=== PATIENT | male | born 1950 | race Caucasian/White ===

== ENCOUNTER → 2018-04-22 | Outpatient (CLI) | payer OTHER, BC | LOC: BHFA 10:00 | PROVIDERS: ATTEND Internal Medicine Cardiovascular Disease | DX: I77.810 Thoracic aortic ectasia (principal) ==

== ENCOUNTER 2018-05-12 15:19 | Observation (INO) | payer OTHER, BC ==
--- NOTE | 2018-05-12 16:12 | EDPHY ---
H & P Stated Complaint: nausea, weakness, fever, abdominal pain Time Seen by Provider: 05/12/18 15:51 HPI/ROS: Chief complaint: Fever History of present illness: This is a 67-year-old male who presents to the emergency department for evaluation of fever. He reports the onset of subjective fevers last night. He reports associated the dyspnea, nausea and vomiting as well as diarrhea. In addition, he reports generalized fatigue. He denies precipitating factors. He denies alleviating factors. He does report approximately a week and a half ago he was sick with cold symptoms, his doctor treated him with amoxicillin. He finished 7 of 10 days worth of the course and felt like he has recovered. He denies associated signs or symptoms including no chest pain, no blood in the stools, no urinary symptoms. Review of systems: A 10 point review of systems was obtained and other than described above was negative - Personal History Current Tetanus/Diphtheria Vaccine: Yes Current Tetanus Diphtheria and Acellular Pertussis (TDAP): Yes - Medical/Surgical History Hx Asthma: No Hx Chronic Respiratory Disease: No Hx Diabetes: No Hx Cardiac Disease: No Hx Renal Disease: No Hx Cirrhosis: No Hx Alcoholism: No Hx HIV/AIDS: No Hx Splenectomy or Spleen Trauma: No - Social History Smoking Status: Never smoked - Physical Exam Exam: General Appearance: Alert, nontoxic. Eyes: Pupils equal and round no pallor or injection. ENT, Mouth: Mucous membranes moist. Respiratory: There are no retractions, lungs are clear to auscultation. Cardiovascular: Regular rate and rhythm. Gastrointestinal: Abdomen is soft and non tender, no masses, bowel sounds normal. Neurological: Alert. Strength and sensation intact. No meningismus. Skin: Warm and dry, no rashes. Musculoskeletal: Neck is supple non tender. Extremities are symmetrical, full range of motion. Psychiatric: Patient is oriented X 3, there is no agitation. Constitutional: Initial Vital Signs Temperature (C) 37.4 C 05/12/18 15:34 Heart Rate 114 H 05/12/18 15:34 Respiratory Rate 16 05/12/18 15:34 Blood Pressure 182/152 H 05/12/18 15:34 O2 Sat (%) 99 05/12/18 15:34 O2 Delivery Mode Room Air Allergies/Adverse Reactions: No Known Allergies Allergy (Unverified 05/12/18 15:42) Home Medications: Medication Instructions Recorded Acetaminophen [Tylenol ES 500 mg 500 mg PO Q6 PRN 05/12/18 (*)] Allopurinol [Allopurinol 300 MG 300 mg PO DAILY 05/12/18 (RX)] Cholecalciferol (Vitamin D3) 50,000 unit PO MO 05/12/18 [Vitamin D] Famciclovir 500 mg PO DAILY 05/12/18 Folic Acid [Folic Acid 1 MG (*)] 1 mg PO DAILY 05/12/18 Labetalol HCl [Trandate 100 mg (*)] 100 mg PO DAILY 05/12/18 Losartan Potassium [Cozaar 25 mg 25 mg PO DAILY 05/12/18 (*)] Mometasone Furoate [Elocon Cream 1 almaz TP HS 05/12/18 (*)] Omeprazole 20 mg PO BID 05/12/18 Rosuvastatin Calcium [Crestor 10mg 5 mg PO DAILY 05/12/18 (RX)] metroNIDAZOLE 0.75% [Metrocream 1 amlaz TP HS 05/12/18 0.75% (RX)] Medical Decision Making - Diagnostics Imaging Results: Imaging Impressions Chest X-Ray 05/12/18 16:07 Impression: Tortuous thoracic aorta. No acute cardiopulmonary abnormality identified. Imaging: I viewed and interpreted images myself ED Course/Re-evaluation: Patient is seen in conjunction with my secondary supervising physician Dr. Luz Guy. Patient presents to the emergency department with fever, nausea, vomiting and diarrhea. He is generally unwell appearing. He triggered sepsis screening, although he did not qualify for severe sepsis as he was borderline the all rhythm was followed. No specific infectious pathology was noted therefore antibiotics were withheld. Given he is unwell appearing he is admitted to the hospitalist service for further evaluation and care. The plan has been discussed with the patient and family who voiced understanding and agreement with plan. Differential Diagnosis: Included but not limited to URI, bronchitis, pneumonia, influenza, GI bug, sepsis, - Data Points Laboratory Results: Laboratory Results 05/12/18 16:20 05/12/18 16:20 05/12/18 05/12/18 05/12/18 16:20 16:20 16:20 WBC RBC Hgb Hct MCV MCH MCHC RDW Plt Count MPV Neut % (Auto) Lymph % (Auto) [place] % (Auto) Eos % (Auto) Baso % (Auto) Nucleat RBC Rel Count Absolute Neuts (auto) Absolute Lymphs (auto) Absolute Monos (auto) Absolute Eos (auto) Absolute Basos (auto) Absolute Nucleated RBC Immature Gran % Immature Gran # RBC/WBC/PLT Morphology Platelet Estimate PT 13.3 SEC SEC (12.0-15.0) INR 1.05 (0.83-1.16) APTT 26.3 SEC SEC (23.0-38.0) VBG Lactic Acid 2.5 mmol/L H mmol/L (0.7-2.1) Sodium Potassium Chloride Carbon Dioxide Anion Gap BUN Creatinine Estimated GFR Glucose Calcium Total Bilirubin Conjugated Bilirubin Unconjugated Bilirubin AST ALT Alkaline Phosphatase Total Protein Albumin Lipase Nasal Influenza A PCR NEGATIVE FOR FLU A (NEGATIVE) Nasal Influenza B PCR NEGATIVE FOR FLU B (NEGATIVE) 05/12/18 05/12/18 16:20 16:20 WBC 10.83 10^3/uL H 10^3/uL (3.80-9.50) RBC 5.43 10^6/uL 10^6/uL (4.40-6.38) Hgb 15.9 g/dL g/dL (13.7-17.5) Hct 46.8 % % (40.0-51.0) MCV 86.2 fL fL (81.5-99.8) MCH 29.3 pg pg (27.9-34.1) MCHC 34.0 g/dL g/dL (32.4-36.7) RDW 13.3 % % (11.5-15.2) Plt Count 180 10^3/uL 10^3/uL (150-400) MPV 11.5 fL fL (8.7-11.7) Neut % (Auto) 91.3 % H % (39.3-74.2) Lymph % (Auto) 3.5 % L % (15.0-45.0) [place] % (Auto) 4.7 % % (4.5-13.0) Eos % (Auto) 0.0 % L % (0.6-7.6) Baso % (Auto) 0.1 % L % (0.3-1.7) Nucleat RBC Rel Count 0.0 % % (0.0-0.2) Absolute Neuts (auto) 9.89 10^3/uL H 10^3/uL (1.70-6.50) Absolute Lymphs (auto) 0.38 10^3/uL L 10^3/uL (1.00-3.00) Absolute Monos (auto) 0.51 10^3/uL 10^3/uL (0.30-0.80) Absolute Eos (auto) 0.00 10^3/uL L 10^3/uL (0.03-0.40) Absolute Basos (auto) 0.01 10^3/uL L 10^3/uL (0.02-0.10) Absolute Nucleated RBC 0.00 10^3/uL 10^3/uL (0-0.01) Immature Gran % 0.4 % % (0.0-1.1) Immature Gran # 0.04 10^3/uL 10^3/uL (0.00-0.10) RBC/WBC/PLT Morphology TNP Platelet Estimate TNP PT INR APTT VBG Lactic Acid Sodium 136 mEq/L mEq/L (135-145) Potassium 3.7 mEq/L mEq/L (3.5-5.2) Chloride 105 mEq/L mEq/L (97-110) Carbon Dioxide 20 mEq/l L mEq/l (22-31) Anion Gap 11 mEq/L mEq/L (6-14) BUN 30 mg/dL H mg/dL (7-23) Creatinine 1.2 mg/dL mg/dL (0.7-1.3) Estimated GFR 60 Glucose 96 mg/dL mg/dL (70-100) Calcium 9.4 mg/dL mg/dL (8.5-10.4) Total Bilirubin 1.6 mg/dL H mg/dL (0.1-1.4) Conjugated Bilirubin 0.4 mg/dL mg/dL (0.0-0.5) Unconjugated Bilirubin 1.2 mg/dL H mg/dL (0.0-1.1) AST 29 IU/L IU/L (17-59) ALT 26 IU/L IU/L (21-72) Alkaline Phosphatase 59 IU/L IU/L (38-126) Total Protein 6.5 g/dL g/dL (6.3-8.2) Albumin 4.2 g/dL g/dL (3.5-5.0) Lipase 90 IU/L IU/L (23-300) Nasal Influenza A PCR Nasal Influenza B PCR Microbiology Results: MICROBIOLOGY 05/12/18 16:29 Nasal, Sinus - Swab Respiratory Panel (PCR) - Final No Organism Detected By Pcr Medications Given: Sodium Chloride (Ns) 1,000 mls @ 100 mls/hr IV CONT CARLOS Stop: 05/13/18 04:44 Last Admin: 05/12/18 19:33 Dose: 1,000 mls Miscellaneous Medication (Metronidazole 0.75% [Metrocream 0.75%]) 1 almaz TP HS CARLOS Stop: 11/08/18 20:59 Last Admin: 05/12/18 19:59 Dose: Not Given Miscellaneous Medication (Mometasone Furoate [Elocon Cream (*)]) 1 almaz TP HS CARLOS Stop: 11/08/18 20:59 Last Admin: 05/12/18 19:59 Dose: Not Given Discontinued Medications Sodium Chloride (Ns) 1,000 mls @ 0 mls/hr IV ONCE ONE; Wide Open PRN Reason: Protocol Stop: 05/12/18 16:08 Last Admin: 05/12/18 16:45 Dose: Not Given Sodium Chloride (Ns) 2,500 mls @ 5,000 mls/hr 30 ml/kg infuse over 30 min ( 2500 ml) IV EDNOW ONE PRN Reason: Protocol Stop: 05/12/18 17:04 Last Admin: 05/12/18 16:55 Dose: 2,500 mls Ondansetron HCl (Zofran) 4 mg IVP EDNOW ONE Stop: 05/12/18 16:29 Last Admin: 05/12/18 16:29 Dose: 4 mg Departure - Departure Disposition: [facility] Acute Clinical Impression: Vomiting and diarrhea Fever Qualifiers: Fever type: unspecified Qualified Code(s): R50.9 - Fever, unspecified Condition: Fair
[2018-05-12] MEDS: NS 1,000 ML IV ONE ×2 (16:15→16:45)
[2018-05-12] MEDS ORDERED: ONDANSETRON 4 MG/2 ML VIAL ONE (16:28)
[2018-05-12] MEDS ORDERED: ONDANSETRON 4 MG/2 ML VIAL IVP ONE (16:28)
[2018-05-12 16:35] LABS: PLATELET COUNT 180 10^3/uL (150-400)
[2018-05-12] MEDS ORDERED: NS 2,500 ML IV ONE (16:35)
[2018-05-12 16:50] LABS: INR 1.05 (0.83-1.16); PROTIME(PATIENT) 13.3 SEC (12.0-15.0)
[2018-05-12] MEDS ORDERED: ONDANSETRON DISINTEGRATING 4 MG TAB PO PRN (18:40)
[2018-05-12] MEDS ORDERED: ACETAMINOPHEN 325 MG TAB PO PRN (18:40)
[2018-05-12] MEDS ORDERED: ONDANSETRON 4 MG/2 ML VIAL IVP PRN (18:40)
[2018-05-12] MEDS ORDERED: NS 1,000 ML IV SCH (18:45)
[2018-05-12] MEDS ORDERED: PROMETHAZINE HCL 25 MG/ML INJ IVP PRN (18:49)
--- NOTE | 2018-05-12 18:56 | PDGENHP ---
History and Physical - Chief Complaint Nausea, vomiting, diarrhea - History of Present Illness HPI: 67 y/o male w/ hx of hypertension, hyperlipidemia and dilated aortic root presents to ED w/ acute nausea, vomiting, diarrhea, body aches, and fatigue. Per pt and (who was at bedside), he had a bad cold w/ productive cough and was given Amoxicillin by his PCP which was last week. Cold symptoms have resolved. Yesterday night, he ate chicken parmesan at his 's mom's assisted -living facility and is not sure if the chicken was cooked completely. He went to bed early. He woke up today and felt like his stomach was "upside down" and had 3 bouts of non-bloody vomiting and one bout of non-bloody diarrhea. He feels like he is breathing differently by "trying to catch my breath" because of the nausea and general malaise, saturating 99% RA. checked his temp at home and was 100.8F. He denies chest pain, palpitations, constipation, dysuria , chills. He is negative for influenza and CXR w/o any acute cardiopulmonary present. He is being admitted for further testing and monitoring. History Information - Allergies/Home Medication List Allergies/Adverse Reactions: No Known Allergies Allergy (Unverified 05/12/18 15:42) Home Medications: Acetaminophen [Tylenol ES 500 mg (*)] 500 mg PO Q6 PRN 05/12/18 [Last Taken Unknown] Allopurinol [Allopurinol 300 MG (RX)] 300 mg PO DAILY 05/12/18 [Last Taken 05/11] Cholecalciferol (Vitamin D3) [Vitamin D] 50,000 unit PO MO 05/12/18 [Last Taken 05/09/18] Famciclovir 500 mg PO DAILY 05/12/18 [Last Taken Unknown] Folic Acid [Folic Acid 1 MG (*)] 1 mg PO DAILY 05/12/18 [Last Taken Unknown] Labetalol HCl [Trandate 100 mg (*)] 100 mg PO DAILY 05/12/18 [Last Taken ] Losartan Potassium [Cozaar 25 mg (*)] 25 mg PO DAILY 05/12/18 [Last Taken ] Mometasone Furoate [Elocon Cream (*)] 1 almaz TP HS 05/12/18 [Last Taken 05/11/18] Omeprazole 20 mg PO BID 05/12/18 [Last Taken 05/11/18] Rosuvastatin Calcium [Crestor 10mg (RX)] 5 mg PO DAILY 05/12/18 [Last Taken 08/24] metroNIDAZOLE 0.75% [Metrocream 0.75% (RX)] 1 almaz TP HS 05/12/18 [Last Taken 08/24] I have personally reviewed and updated: family history, medical history, social history, surgical history - Past Medical History hypertension, hyperlipidemia - Surgical History Additional surgical history: Prostatectomy in 2010 - Family History Positive for: non-pertinent - Social History Smoking Status: Never smoked Alcohol Use: Rarely Drug Use: None Additional social history: , renovating portions of their house. Because they are re-doing their [place], the sawdust is affecting his respiratory system. They have been staying at a hotel for the last 3 days. Review of Systems Review of Systems: ROS: 10pt was reviewed & negative except for what was stated in HPI & below Physical Exam Physical Exam: Lab data and imaging were reviewed. Case discussed with admitting physician, Dr. Fran Farris. WBC: 10.83 Lactic acid: 2.5 --> received bolus of NS ---> rechecked 1.9 BUN/Cr: 30/1.2 CXR: No acute cardiopulmonary abnormalities. Tortuous thoracic aorta. Temp Pulse Resp BP Pulse Ox 37.4 C 95 18 115/72 99 05/12/18 15:34 05/12/18 18:05 05/12/18 18:05 05/12/18 18:05 05/12/18 18:05 Constitutional: appears nourished, uncomfortable, other (Calm, cooperative male pt. Appears fatigued and skin is flushed.) Eyes: PERRL, anicteric sclera, EOMI Ears, Nose, Mouth, Throat: hearing normal, ears appear normal, no oral mucosal ulcers, dry mucous membranes Cardiovascular: regular rate and rhythym, no murmur, rub, or gallop, tachycardia Peripheral Pulses: 2+: dorsalis-pedis (R) (Radial 2+), dorsalis-pedis (L) ( Radial 2+) Respiratory: no respiratory distress, no rales or rhonchi, clear to auscultation Gastrointestinal: normoactive bowel sounds, no palpable masses, tenderness (LUQ/ LLQ - reports having diverticulitis in the past, denies these are similar symptoms) Genitourinary: no bladder fullness, no bladder tenderness Skin: warm, normal color, no rashes or abrasions, no fluctuance, no induration, other (Flushed skin tone), No mottled Musculoskeletal: full muscle strength, no muscle tenderness, normal joint ROM, no joint effusions Neurologic: AAOx3, sensation intact bilaterally, CN II-XII Intact Psychiatric: interacting appropriately, not anxious, not encephalopathic, thought process linear Lymph, Heme, Immunologic: no cervical LAD, no supraclavicular LAD Lab Data & Imaging Review 05/12/18 16:20 05/12/18 16:20 WBC 10.83 10^3/uL (3.80-9.50) H 05/12/18 16:20 RBC 5.43 10^6/uL (4.40-6.38) 05/12/18 16:20 Hgb 15.9 g/dL (13.7-17.5) 05/12/18 16:20 Hct 46.8 % (40.0-51.0) 05/12/18 16:20 MCV 86.2 fL (81.5-99.8) 05/12/18 16:20 MCH 29.3 pg (27.9-34.1) 05/12/18 16:20 MCHC 34.0 g/dL (32.4-36.7) 05/12/18 16:20 RDW 13.3 % (11.5-15.2) 05/12/18 16:20 Plt Count 180 10^3/uL (150-400) 05/12/18 16:20 MPV 11.5 fL (8.7-11.7) 05/12/18 16:20 Neut % (Auto) 91.3 % (39.3-74.2) H 05/12/18 16:20 Lymph % (Auto) 3.5 % (15.0-45.0) L 05/12/18 16:20 [place] % (Auto) 4.7 % (4.5-13.0) 05/12/18 16:20 Eos % (Auto) 0.0 % (0.6-7.6) L 05/12/18 16:20 Baso % (Auto) 0.1 % (0.3-1.7) L 05/12/18 16:20 Nucleat RBC Rel Count 0.0 % (0.0-0.2) 05/12/18 16:20 Absolute Neuts (auto) 9.89 10^3/uL (1.70-6.50) H 05/12/18 16:20 Absolute Lymphs (auto) 0.38 10^3/uL (1.00-3.00) L 05/12/18 16:20 Absolute Monos (auto) 0.51 10^3/uL (0.30-0.80) 05/12/18 16:20 Absolute Eos (auto) 0.00 10^3/uL (0.03-0.40) L 05/12/18 16:20 Absolute Basos (auto) 0.01 10^3/uL (0.02-0.10) L 05/12/18 16:20 Absolute Nucleated RBC 0.00 10^3/uL (0-0.01) 05/12/18 16:20 Immature Gran % 0.4 % (0.0-1.1) 05/12/18 16:20 Immature Gran # 0.04 10^3/uL (0.00-0.10) 05/12/18 16:20 RBC/WBC/PLT Morphology TNP 05/12/18 16:20 Platelet Estimate TNP 05/12/18 16:20 PT 13.3 SEC (12.0-15.0) 05/12/18 16:20 INR 1.05 (0.83-1.16) 05/12/18 16:20 APTT 26.3 SEC (23.0-38.0) 05/12/18 16:20 VBG Lactic Acid 1.9 mmol/L (0.7-2.1) 05/12/18 18:10 Sodium 136 mEq/L (135-145) 05/12/18 16:20 Potassium 3.7 mEq/L (3.5-5.2) 05/12/18 16:20 Chloride 105 mEq/L (97-110) 05/12/18 16:20 Carbon Dioxide 20 mEq/l (22-31) L 05/12/18 16:20 Anion Gap 11 mEq/L (6-14) 05/12/18 16:20 BUN 30 mg/dL (7-23) H 05/12/18 16:20 Creatinine 1.2 mg/dL (0.7-1.3) 05/12/18 16:20 Estimated GFR 60 05/12/18 16:20 Glucose 96 mg/dL (70-100) 05/12/18 16:20 Calcium 9.4 mg/dL (8.5-10.4) 05/12/18 16:20 Total Bilirubin 1.6 mg/dL (0.1-1.4) H 05/12/18 16:20 Conjugated Bilirubin 0.4 mg/dL (0.0-0.5) 05/12/18 16:20 Unconjugated Bilirubin 1.2 mg/dL (0.0-1.1) H 05/12/18 16:20 AST 29 IU/L (17-59) 05/12/18 16:20 ALT 26 IU/L (21-72) 05/12/18 16:20 Alkaline Phosphatase 59 IU/L (38-126) 05/12/18 16:20 Total Protein 6.5 g/dL (6.3-8.2) 05/12/18 16:20 Albumin 4.2 g/dL (3.5-5.0) 05/12/18 16:20 Lipase 90 IU/L (23-300) 05/12/18 16:20 Nasal Influenza A PCR NEGATIVE FOR FLU A (NEGATIVE) 05/12/18 16:20 Nasal Influenza B PCR NEGATIVE FOR FLU B (NEGATIVE) 05/12/18 16:20 Assessment & Plan Plan: 67 y/o male w/ hx of HTN, HLD, and dilated aortic root presents with acute onset of N/V, diarrhea, and general malaise. He was recently treated with Amoxicillin from his PCP for URI which per pt, has resolved one week prior. 1. SIRS 2/2 suspected infection from unknown origin: Received 2.5L NS in ED, lactic acid of 2.5 was rechecked and was 1.9 after receiving fluids. Afebrile now (37.4c), however tachycardic and upon presentation to ED was dyspneic at 20. Leukocytosis (10.83). Possible food poisoning from yesterday's meal. -Negative respiratory PCR -GI pathogen panel PCR needs to be collected -UA and blood cultures pending -CBC in AM to check white count -Cont IVF x 1 bag -Treat symptoms conservatively w/ anti-emetics and fluids 2. Renal impairment: BUN/Cr: 30/1.2. 2017 BUN/Cr 22/1.1. Mild renal impairment d/t acute fluid loss, poor PO intake. -Received IVF in ED; will receive one IVF bag -BMP in AM to review renal function -Avoid nephrotoxic agents 3. Hypertension/dilated aortic root: He recently saw corporate analyst Dr. Segovia as a f/u to his echo in late 2018. Echo was unremarkable with EF 69%, RVSP 32 mmHg, dilated ascending aorta measuring 4.1cm which compared to an echo in 2014 is unchanged. On labetalol. Holding losartan d/t #2 above. 4. Hyperlipidemia: on rosuvastatin. 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 Diet: Regular VTE ppx: SCDs Code: Full Dispo: Admit to obs
--- NOTE | 2018-05-12 19:43 | HOSPPROG ---
Hospitalist Progress Note Assessment/Plan: I have personally seen and evaluated Mr. Leos. I agree with the assessment and plan as outlined by BENCH MECHANIC, Ivy Sr, in a separate note. Objective: Vital Signs Temp Pulse Resp BP Pulse Ox 37.4 C 95 18 115/72 99 05/12/18 15:34 05/12/18 18:05 05/12/18 18:05 05/12/18 18:05 05/12/18 18:05 05/11/18 05/12/18 05/13/18 05:59 05:59 05:59 Intake Total 2500 Output Total 0 Balance 2500 PT 13.3 SEC (12.0-15.0) 05/12/18 16:20 INR 1.05 (0.83-1.16) 05/12/18 16:20 - Physical Exam Constitutional: no apparent distress Eyes: PERRL Ears, Nose, Mouth, Throat: moist mucous membranes Cardiovascular: regular rate and rhythym Respiratory: no respiratory distress Skin: warm Neurologic: AAOx3 Psychiatric: interacting appropriately ICD10 Worksheet Patient Problems: Problems Problem Status Onset Fever Acute Vomiting and diarrhea Acute
[2018-05-12] MEDS ORDERED: MOMETASONE FUROATE TP SCH (21:00)
[2018-05-12] MEDS ORDERED: METRONIDAZOLE 0.75% TP SCH (21:00)
[2018-05-13 05:55] LABS: PLATELET COUNT 134 10^3/uL (150-400)
[2018-05-13] MEDS ORDERED: ROSUVASTATIN CALCIUM 10 MG TAB PO SCH (09:00)
[2018-05-13] MEDS ORDERED: LABETALOL HCL 100 MG TAB PO SCH (09:00)
[2018-05-13] MEDS ORDERED: FAMCICLOVIR 250 MG TAB PO SCH (09:00)
[2018-05-13] MEDS ORDERED: LOSARTAN POTASSIUM 25 MG TAB PO SCH (09:00)
[2018-05-13] MEDS ORDERED: ALLOPURINOL 300 MG TAB PO SCH (09:00)
[2018-05-13] MEDS ORDERED: FOLIC ACID 1 MG TAB PO SCH (09:00)
[2018-05-13] MEDS ORDERED: PANTOPRAZOLE SODIUM 40 MG TAB PO SCH (09:00)
[2018-05-13 11:04] VITALS: BP 110/60
--- NOTE | 2018-05-13 12:17 | HOSPPROG ---
Hospitalist Progress Note Assessment/Plan: . 67 y/o male w/ hx of HTN, HLD, and dilated aortic root presents with acute onset of N/V, diarrhea, and general malaise. He was recently treated with Amoxicillin from his PCP for URI which per pt, has resolved one week prior. *acute viral gastroenteritis -GI PCR shows Eaec -supportive care -no further diarrhea, tolerating regular diet *SIRS due to the above -blood cx pending *recent URI -PCR is negative *renal insufficienc-stable *HTN (Chest xray shows a tortuous thoracic aorta) -He recently saw bull gang supervisor Dr. Segovia as a f/u to his echo in late 2018 -dilated ascending aorta measuring 4.1cm *Hyperlipidemia - on rosuvastatin. * Ocular herpes -on Famvir *plan: dc home Subjective: Braulio said he is feeling overall better. Objective: Vital Signs Temp Pulse Resp BP Pulse Ox 36.8 C 71 16 110/60 94 05/13/18 11:03 05/13/18 11:03 05/13/18 11:03 05/13/18 11:03 05/13/18 11:03 Microbiology 05/12/18 21:05 Gastrointestinal Tract Panel (PCR) - Final Stool E.coli Enteroaggregative(Eaec) Laboratory Results 05/13/18 04:55 05/13/18 04:55 05/12/18 05/13/18 05/14/18 05:59 05:59 05:59 Intake Total 2500 Output Total 0 Balance 2500 PT 13.3 SEC (12.0-15.0) 05/12/18 16:20 INR 1.05 (0.83-1.16) 05/12/18 16:20 - Physical Exam Constitutional: no apparent distress, appears nourished, not in pain Eyes: PERRL Ears, Nose, Mouth, Throat: hearing normal Cardiovascular: regular rate and rhythym Respiratory: no respiratory distress Gastrointestinal: normoactive bowel sounds, soft, non-tender abdomen Skin: warm Neurologic: AAOx3 Psychiatric: interacting appropriately ICD10 Worksheet Patient Problems: Problems Problem Status Onset Fever Acute Vomiting and diarrhea Acute
--- NOTE | 2018-05-13 15:18 | ASDISCHSUM ---
Discharge Information Plan Status:Home with No Needs Medically Cleared to Leave:05/12/2018 Discharge Date:05/13/2018 02:39 PM CM D/C Disposition:Home, Routine, Self-Care ADT D/C Disposition:Home, Routine, Self-Care Projected Discharge Date:05/13/2018 02:39 PM Transportation at D/C:Family Discharge Delay Reason: Follow-Up Date:05/13/2018 02:39 PM Discharge Slot: Final Diagnosis:viral gastroenteritis Placement Information Patient Contact Information Contact Name:RUIZ Relationship: Address:[address] [place] Work Phone: [facility]:[place] Alternate Phone: [facility]/Zip Code:[place] [address] Email: Financial Information Financial Class:Medicare Primary Plan Desc:MEDICARE INPATIENT Primary Plan Number:[id number] Secondary Plan Desc:[facility] Secondary Plan Number:[id number] Assessment Information LACE LACE Length of stay for Answers: Less than 1 day current admission Acuity / Level of Answers: No Care: Did the patient have an inpatient admission? Comorbidities - select Answers: Other Notes: HTN; HLD all that apply # of Emergency department Answers: 1-2 visits in the last 6 months Score: 2 Date Signed: 05/13/2018 03:17 PM Electronically Signed By:Claire Anna Case Management Discharge Plan Note Case Management Discharge Discharge Order Complete? Answers: Yes Patient to Obtain Answers: via Family Medications Transportation Arranged Answers: Family/Friends Transport will Pick (Date 05/13/2018 12:00 AM & Time) Family Notified Answers: Yes Notes: in the room Discharge Comments Notes: Pt to discharge independently. providing transport and support. No CM needs noted at this time. Date Signed: 05/13/2018 03:16 PM Electronically Signed By:Claire Anna Intervention Information
--- NOTE | 2018-05-14 01:36 | GDS ---
[f rep st] DISCHARGE SUMMARY DISCHARGE DIAGNOSES: 1. Acute viral gastroenteritis due to enteroaggregative Escherichia coli .. 2. Systemic inflammatory response syndrome due to this. 3. Recent upper respiratory infection. 4. Renal insufficiency. 5. Hypertension. 6. Hyperlipidemia. 7. Ocular herpes. Briefly, the patient is a 67-year-old gentleman with a history of hypertension, hyperlipidemia, and d ilated aortic root. He presented with acute onset of nausea, vomiting, and diarrhea and general ofelia ise. He was recently treated with amoxicillin from his PCP for an upper respiratory infection, which has resolved. He was admitted for further evaluation. HOSPITAL COURSE: 1. Acute viral gastroenteritis. His GI PCR shows EAEC. He has had no further direct diarrhea today . He is tolerating a regular diet. 2. SIRS due to the above. His blood cultures are pending. Lactate stabilized. 3. Recent upper respiratory infection. PCR is negative. 4. Renal insufficiency. Creatinine is stable. 5. Hypertension. Blood pressure is stable. 6. Hyperlipidemia, on statin therapy. 7. Ocular herpes, on Famvir. PENDING LABS: Blood cultures. DISCHARGE CONDITION: Stable. Blood pressure is 110/60. Heart rate is 71. Respiratory rate is 16. O2 sats on room air are 94%, temperature 36.8 Celsius. MEDICATIONS AT DISCHARGE: Please see the EMR. DISCHARGE INSTRUCTIONS: 1. To follow up with his cigarette carton sealer in regard to his aorta. 2. To stay well hydrated. 3. To take Pedialyte if he has further diarrhea. 4. If he feels fever, chills, chest pain, or shortness of breath, return to the ER. /[id number]/MODL
[2018-05-16] MEDS ORDERED: CHOLECALCIFEROL VIT D3 50,000 UNIT CAP PO SCH (19:13)
== END 2018-05-13 14:39 | disposition home or self-care (01) ==
LOC: INTOOBSV 17:46 → F3E 18:43
PROVIDERS: ADMIT Internal Medicine; ATTEND Internal Medicine
DX: A08.39 Other viral enteritis (principal); B96.20 Unspecified Escherichia coli [E. coli] as the cause of diseases classified elsewhere; E86.9 Volume depletion, unspecified; N28.9 Disorder of kidney and ureter, unspecified; I10 Essential (primary) hypertension; I77.810 Thoracic aortic ectasia; E78.5 Hyperlipidemia, unspecified; B02.30 Zoster ocular disease, unspecified
CPT/HCPCS: 71046; 96361; 96374; 99285; G0378; J2405